=== PATIENT | female | born 1965 | race Caucasian/White ===

== ENCOUNTER → 2020-08-18 12:52 | Outpatient (CLI) | payer BC, SELFPAY ==
--- NOTE | ~2020-08-18 | CT_ITS ---
EXAMINATION:CT lung screening DATE: 08/18/2020 13:11 INDICATION: Personal history of tobacco dependence. Smoker who quit 1 year ago with 30 pack year hist ory. TECHNIQUE: Computed tomography (CT) of the chest was performed without intravenous contrast. Automate d exposure control and iterative reconstruction technique were employed. The dose-length product (DLP ) was 66.89 mGy-cm. COMPARISON: Chest CT 07/28/2019 FINDINGS: There is mild scarring at the lung apices. There is mild emphysema. There is mild atelectas is bilaterally. No pleural effusion. The heart size is normal. No pericardial effusion. There are no pathologically enlarged lymph nodes. There is no free intraperitoneal fluid. There is mild thoracic s pondylosis. IMPRESSION: 1. Lung-RADS category 2: Benign appearance or behavior. Continue annual screening with noncontrast lo w-dose chest CT in 12 months. Reviewed, dictated and finalized at location A. IMPRESSION: 1. Lung-RADS category 2: Benign appearance or behavior. Continue annual screeni ng with noncontrast low-dose chest CT in 12 months.
== END ==
PROVIDERS: PCP Family Medicine; Visit Provider Family Medicine
DX: Z12.2 Encounter for screening for malignant neoplasm of respiratory organs (principal); Z87.891 Personal history of nicotine dependence
CPT/HCPCS: G0297

== ENCOUNTER → 2020-08-31 10:59 | Outpatient (CLI) | payer BC, SELFPAY ==
--- NOTE | ~2020-08-31 | MM_ITS ---
EXAMINATION: MM screening [facility] BI w payal HISTORY: Screening TECHNIQUE: Craniocaudal and mediolateral oblique 3-D tomosynthesis images were obtained and synthetic 2-D images were generated. CAD analysis was submitted and interpreted. COMPARISON: Comparison to multiple prior studies sequentially, with oldest reviewed study dated 01/2018. BREAST PARENCHYMAL COMPOSITION: There are scattered areas of fibroglandular density.. FINDINGS: The left breast is stable without evidence for. There is developing asymmetry in the upper inner quadrant of the right breast. IMPRESSION: 1. Developing right breast asymmetry, best seen on CC view. 2. Additional mammographic views and possible breast ultrasound are recommended. BI-RADS Category 0: Incomplete: Needs additional imaging evaluation. Reviewed, dictated and finalized at location A. 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 Developing right breast asymmetry, best seen on CC view. 2. Additional mammographic views and possible breast ultrasound are recommended . BI-RADS Category 0: Incomplete: Needs additional imaging evaluation.
== END ==
PROVIDERS: PCP Family Medicine; Visit Provider Family Medicine
DX: Z12.31 Encounter for screening mammogram for malignant neoplasm of breast (principal); R92.8 Other abnormal and inconclusive findings on diagnostic imaging of breast
CPT/HCPCS: 77063; 77067

== ENCOUNTER → 2020-09-16 08:39 | Outpatient (CLI) | payer BC, SELFPAY ==
--- NOTE | ~2020-09-16 | MM_ITS ---
EXAMINATION: MM diagnostic mammo unilat RT HISTORY: Right breast asymmetry on screening mammogram TECHNIQUE: Additional 3-D tomosynthesis images of the right breast were performed and synthetic 2-D i mages were generated. CAD analysis was submitted and interpreted. COMPARISON: 08/31/2020, 07/28/2019, 06/20/2018 FINDINGS: An asymmetry in the posterior third of the slightly inner breast on the craniocaudal view h as an appearance similar to prior mammograms with spot compression. No suspicious mass, calcification , or architectural distortion are identified. IMPRESSION: 1. No mammographic evidence of malignancy. 2. Recommend routine screening mammography in one year. BI-RADS Category 2: Benign finding(s). Reviewed, dictated and finalized at location A. 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
== END ==
PROVIDERS: PCP Family Medicine; Visit Provider Family Medicine
DX: R92.8 Other abnormal and inconclusive findings on diagnostic imaging of breast (principal)
CPT/HCPCS: 77065

== ENCOUNTER → 2021-10-16 16:38 | Outpatient (CLI) | payer BC, SELFPAY ==
--- NOTE | ~2021-10-16 | MM_ITS ---
EXAMINATION: MM screening [facility] BI w payal HISTORY: Screening mammogram TECHNIQUE: Craniocaudal and mediolateral oblique 3-D tomosynthesis images were obtained and synthetic 2-D images were generated. CAD analysis was submitted and interpreted. COMPARISON: 09/16/2020, 08/31/2020, 07/28/2019 BREAST PARENCHYMAL COMPOSITION: There are scattered areas of fibroglandular density. FINDINGS: A stable asymmetry is present in the posterior third of the inner right breast on the crani ocaudal view. There is no evidence of suspicious mass, calcification, or architectural distortion to suggest malignancy in either breast. There has been no suspicious interval change. IMPRESSION: 1. No mammographic evidence of malignancy. 2. Recommend routine screening mammography in one year. BI-RADS Category 2: Benign finding(s). Reviewed, dictated and finalized at location A. 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
== END ==
PROVIDERS: PCP Family Medicine; Visit Provider Family Medicine
DX: Z12.31 Encounter for screening mammogram for malignant neoplasm of breast (principal)
CPT/HCPCS: 77063; 77067

== ENCOUNTER 2021-12-18 00:40 | Day surgery (SDC) | payer BC, SELFPAY ==
[2021-12-07 10:37] VITALS: BMI 26.9
[2021-12-18 11:54] VITALS: BP 127/81; PULSE 69; RESP 18; TEMP 36.3; O2SAT 100; BMI 28.7
[2021-12-18] MEDS: LACTATED RINGERS 1,000 ML 150 ML IV CONT (12:00)
--- NOTE | 2021-12-18 12:14 | WPDANESEPPF ---
Anes - Initial Pre Proc Eval Procedure: Operation Date: 12/18/21 13:00 Proposed Procedures p Screening Colonoscopy - Steve Hull MD Date/Time: 12/18/21 12:14 Surgeon: Steve Hull MD Pre Op Diagnosis: neoplasm screening Patient Data Age: 56 Gender: F Height: 1.7 m Weight: 83.2 kg Last Vital Signs Temp 36.3 C L 12/18/21 11:54 Pulse 69 12/18/21 11:54 Resp 18 12/18/21 11:54 BP 127/81 12/18/21 11:54 Pulse Ox 100 12/18/21 11:54 Allergies Allergy/AdvReac Type Severity Reaction Status Date / Time No Known Allergies Allergy Mild Verified 12/18/21 11:50 Home Medications Medication Instructions Recorded Confirmed Type Uri Stress Gummy 2 gummy PO DAILY 12/07/21 12/07/21 History diphenhydramine HCl [Nitetime 25 mg PO HS PRN 12/07/21 12/07/21 History Sleep Aid] [id number]-rgu-kviw-FA-lutein 1 tablet PO DAILY 12/07/21 12/07/21 History [Centrum Silver Women] sumatriptan succinate [Imitrex] 100 mg PO DAILY PRN 12/07/21 12/07/21 History Patient hx anesthesia problems: none Family hx anesthesia problems: none Results Review: All pre-operative results and documents have been reviewed as part of the pre-operative evaluation. PMFSH Past Medical History Medical History Hx of migraines Social History Social History Smoking status: Former smoker Tobacco type: cigarettes Alcohol use details: Monthly Living arrangements: with family Spiritual care concerns: No Anes - Eval Final PreProcedure Day of Procedure 12/18/21 12:14 Patient weight: overweight Heart: regular rate and rhythm Lungs: clear to auscultation Airway: Mallampati scale class II Neurological: alert and oriented Last oral intake: >/= 8 hours ASA classification: II Emergent: no Anesthetic plan: proceed Anesthesia type and monitoring: general GIVS and standard monitoring Results Review: All pre-operative results and documents have been reviewed as part of the pre-operative evaluation. Informed Consent: The patient's anesthetic plan and its attendant risks and benefits were discussed with the patient/family/POA. Questions were solicited and answers provided to the satisfaction of the patient/family/POA.
--- NOTE | 2021-12-18 12:33 | PM.HPGS ---
History of Present Illness History of Present Illness Consent: Risks, benefits, and alternatives have been discussed and questions answered. Patient agrees to proceed with procedure. Chief complaint: neoplasm screening Narrative: Sonia Linn is a 56 year old female here for screening colonoscopy, she had one but in her 20's Review of Systems Constitutional: Constitutional: Denies headache(s) and Denies weakness Eyes: Eyes: Denies blurry vision ENT: Reports Normal hearing present, Denies headache(s) and Denies neck pain Cardiovascular: Cardiovascular: Denies chest pain and Denies dyspnea Respiratory: Respiratory: Denies dyspnea Gastrointestinal: Gastrointestinal: Reports no additional gastrointestinal complaints Genitourinary: Genitourinary: Denies dysuria Musculoskeletal: Musculoskeletal: Denies neck pain Integumentary/Breasts: Skin/Breast: Denies dry skin Neurologic: Reports Normal hearing present, Denies headache(s) and Denies weakness Psychiatric: Psychiatric: Denies anxiety Endocrine: Endocrine: Denies change in body appearance Hematologic/Lymphatic: Hematologic/Lymphatic: Denies easy bleeding Allergic/Immunologic: Allergic/Immunologic: Denies urticaria PMFSH Past Medical History Medical History (Updated 12/18/21 @ 12:33 by Steve Hull MD) Colon cancer screening Hx of migraines Social History Social History Smoking status: Former smoker Tobacco type: cigarettes Alcohol use details: Monthly Living arrangements: with family Spiritual care concerns: No Meds Home Medications and Allergies Home Medications Medication Instructions Recorded Confirmed Type Uri Stress Gummy 2 gummy PO DAILY 12/07/21 12/07/21 History diphenhydramine HCl [Nitetime 25 mg PO HS PRN 12/07/21 12/07/21 History Sleep Aid] [id number]-[id number]-azgh-FA-lutein 1 tablet PO DAILY 12/07/21 12/07/21 History [Centrum Silver Women] sumatriptan succinate [Imitrex] 100 mg PO DAILY PRN 12/07/21 12/07/21 History Allergies Allergy/AdvReac Type Severity Reaction Status Date / Time No Known Allergies Allergy Mild Verified 12/18/21 11:50 Vital Signs Vital Signs - 24 hr 12/18/21 11:54 Temperature 97.3 F L Pulse Rate 69 Respiratory Rate 18 Blood Pressure 127/81 Pulse Oximetry 100 Exam Const: General: comfortable and no acute distress HENMT: General nose exam: Normal nares present Eyes: General: appearance normal, both eyes and all related structures Neck: Neck: no JVD Resp: Auscultation: clear to auscultation bilaterally Cardio: Rate: regular rate Rhythm: regular rhythm GI: Inspection: non-distended GI Palp: Yes Soft to palpation Skin: General skin exam: normal color Neuro: General: gait normal Speech: normal speech Extrem: General: normal to inspection Psych: Mental Status: mental status grossly normal Assessment and Plan Assessment and plan (1) Colon cancer screening: Code(s): Z12.11 - Encounter for screening for malignant neoplasm of colon Status: Acute Assessment and Plan: colonoscopy
[2021-12-18 12:52] VITALS: BP 117/77; PULSE 88; RESP 15; O2SAT 96
[2021-12-18 13:02] VITALS: BP 115/77; PULSE 78; RESP 24; O2SAT 96
== END 2021-12-18 13:20 | disposition home or self-care (01) ==
PROVIDERS: PCP Family Medicine; Visit Provider Internal Medicine Gastroenterology
PROC: 0DJD8ZZ Inspection of Lower Intestinal Tract, Via Natural or Artificial Opening Endoscopic (ICD-10-PCS; CPT 45378; principal; 2021-12-18 13:00)
DX: Z12.11 Encounter for screening for malignant neoplasm of colon (principal); K57.30 Diverticulosis of large intestine without perforation or abscess without bleeding; K64.8 Other hemorrhoids; Z87.891 Personal history of nicotine dependence
CPT/HCPCS: 45378; J2704; J7120

== ENCOUNTER 2022-08-04 11:27 | Emergency (ER) | payer BC, SELFPAY ==
--- NOTE | ~2022-08-04 | XR_ITS ---
XR knee RT 3V 08/04/2022 12:20 Indication: Right knee pain. Procedure: 3 views right knee Comparison: No prior studies for comparison. Findings: No fracture, subluxation or dislocation. Moderate joint effusion. No significant soft tissu e abnormality. No foreign body. Mild patellofemoral compartment osteoarthritis. Impression: 1: No acute fracture. 2: Mild patellofemoral compartment osteoarthritis. 2: Moderate knee effusion. Reviewed, dictated and finalized at location A. Impression: 1: No acute fracture. 2: Mild patellofemoral compartment osteoarthritis. 2: Moderate knee effusion.
[2022-08-04 11:38] VITALS: BP 128/90; PULSE 74; RESP 16; TEMP 36.1; O2SAT 99
--- NOTE | 2022-08-04 12:02 | ED.LOWEXIN ---
HPI - Extremity Injury (Lower) General Chief Complaint: Extremity Injury, Lower Stated Complaint: knee pain Time Seen by Provider: 08/04/22 12:02 Source: patient Mode of arrival: ambulatory Limitations: no limitations History of Present Illness HPI Narrative: 56-year-old female presented for complaint of right knee pain worsening over the past 2 weeks. She states this last week has been extremely painful, endorses more swelling and limping. Pain is worse to the inner knee and behind the knee. 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 Rates 7/10 at minimum. Endorses she had a problem with her meniscus about 2 tee ago, it was injected and reports significant improvement in pain at that time and has been tolerable for the last 2 years. She denies any new injuries or excessive use. She denies numbness, tingling, or weakness of the extremity. She is taking Aleve for pain and she purchased a knee support. Related Data Home Medications Medication Instructions Recorded Confirmed multivit with 1 tablet PO DAILY 12/07/21 12/07/21 [id number]-sfmt-NZ-lutein 8 mg iron-400 mcg-300 mcg tablet (Centrum Silver Women) sumatriptan succinate 100 mg 100 mg PO DAILY PRN Migraine 12/07/21 12/07/21 tablet (Imitrex) Headache Allergies Allergy/AdvReac Type Severity Reaction Status Date / Time No Known Allergies Allergy Mild Verified 08/04/22 11:30 Review of Systems Review of Systems: CONSTITUTIONAL: Denies body aches, fever, chills EYES: Denies visual changes CARDIOVASCULAR: Denies chest pain, palpitations, or edema. RESPIRATORY: Denies cough or dyspnea. SKIN: Denies rash, itching, or wounds. MUSCULOSKELETAL: Reports right knee pain NEUROLOGIC: Denies headache, numbness, tingling, or weakness. All systems reviewed & are unremarkable except as noted in HPI and below PMFSH Past Medical History Medical History Colon cancer screening Hx of migraines Social History Social History Smoking status: Former smoker Tobacco type: cigarettes Alcohol use details: Monthly Spiritual care concerns: No Comments At time of signature, I have reviewed and agree with nursing past medical, surgical, social and family history unless otherwise noted. Please see nursing chart for further information. There is no relevant family history pertinent to the presenting complaint Exam Narrative: GENERAL: Well-appearing CHEST: Speaks in full sentences. No respiratory distress. HEART: Regular rate and rhythm. Normal and equal peripheral pulses. EXTREMITIES: Moderate right knee swelling; limited range of motion to right knee, tender to palpation medially. RLE has normal strength and sensation, no redness or bruising. No open wounds, alignment normal, pulse palpable and equal bilaterally, skin warm, dry, pink. Capillary refill less than 3 seconds. SKIN: Warm, dry, no rash. NEURO: Alert and oriented x3. PSYCH: Normal mood and affect Course Course Emergency Course: Patient is aware of diagnosis, understands and agrees to treatment plan. Anticipatory guidance given. Patient agrees to follow-up as directed and is aware of reasons to seek care at the emergency department. Portions of this record may have been created with voice recognition software Level of Care: Express Care Visit Vital Signs Vital signs: Vital Signs Temperature 97.0 F L 08/04/22 11:38 Pulse Rate 74 08/04/22 11:38 Respiratory Rate 16 08/04/22 11:38 Blood Pressure 128/90 08/04/22 11:38 Pulse Oximetry 99 08/04/22 11:38 Oxygen Delivery Room Air 08/04/22 11:38 Temperature 97.0 F L 08/04/22 11:38 Pulse Rate 74 08/04/22 11:38 Respiratory Rate 16 08/04/22 11:38 Blood Pressure 128/90 08/04/22 11:38 Pulse Oximetry 99 08/04/22 11:38 Oxygen Delivery Room Air 08/04/22 11:38 Reviewed MDM - Extremity Injury
== END 2022-08-04 12:43 | disposition home or self-care (01) ==
PROVIDERS: Emergency Provider Nurse Practitioner Family
DX: M25.561 Pain in right knee (principal); Z87.891 Personal history of nicotine dependence; Z86.16 Personal history of COVID-19
CPT/HCPCS: 73562; 99213; G0463

== ENCOUNTER → 2022-11-14 08:36 | Outpatient (CLI) | payer BC, SELFPAY ==
--- NOTE | ~2022-11-14 | CT_ITS ---
EXAMINATION: CT lung screening DATE: 11/14/2022 08:57 INDICATION: Tobacco use. Lung cancer screening. TECHNIQUE: Computed tomography (CT) of the chest was performed without intravenous contrast. Automate d exposure control and iterative reconstruction technique were employed. Exam dose: 69.69 mGy-cm tot al exam DLP. COMPARISON: 08/18/2020 CT lung screening FINDINGS: Mild emphysema and mild apical scarring. Again noted. No pulmonary infiltrate or consolidat ion or pulmonary mass lesion. No hilar or mediastinal mass lesion or lymphadenopathy. Normal heart size. No pericardial or pleural effusion. Small sliding hiatal hernia. Normal morphology of the adrenal glands. Included skeletal structures are unremarkable; no suspicious osteolytic or osteoblastic lesions. IMPRESSION: BI-RADS Category 2: Benign appearance or behavior. Continue annual screening with noncon trast low-dose CT chest in 12 months Reviewed, dictated and finalized at Location A. Reviewed, dictated and finalized at location B. 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 Continue annual screening with noncontrast low-dose CT chest in 12 months
== END ==
PROVIDERS: PCP Family Medicine; Visit Provider Family Medicine
DX: Z12.2 Encounter for screening for malignant neoplasm of respiratory organs (principal); Z87.891 Personal history of nicotine dependence
CPT/HCPCS: 71271

== ENCOUNTER → 2023-03-15 15:30 | Outpatient (CLI) | payer BC, SELFPAY ==
--- NOTE | ~2023-03-15 | MM_ITS ---
EXAMINATION: MM screening [facility] BI w payal HISTORY: Screening mammogram TECHNIQUE: Craniocaudal and mediolateral oblique 3-D tomosynthesis images were obtained and synthetic 2-D images were generated. CAD analysis was submitted and interpreted. COMPARISON: 10/16/2021, 09/16/2020, 08/31/2020 BREAST PARENCHYMAL COMPOSITION: There are scattered areas of fibroglandular density. FINDINGS: Again seen is a stable asymmetry in the posterior third of inner right breast on the cranio caudal view. No suspicious mass, calcification, or architectural distortion are identified in either breast to suggest malignancy. There has been no suspicious interval change. IMPRESSION: 1. No mammographic evidence of malignancy. 2. Recommend routine screening mammography in one year. BI-RADS Category 2: Benign finding(s). Reviewed, dictated and finalized at location A.
== END ==
PROVIDERS: PCP Family Medicine; Visit Provider Family Medicine
DX: Z12.31 Encounter for screening mammogram for malignant neoplasm of breast (principal)
CPT/HCPCS: 77063; 77067

== ENCOUNTER 2023-09-04 08:47 | Outpatient (CLI) | payer BC, SELFPAY ==
[2023-09-04 09:41] LABS: Basophils Absolute Auto 0.1 K/mm3 (0.0-0.1); Basophils Percent Auto 0.8 % (0.2-1.2); Eosinophils Absolute Auto 0.4 K/mm3 (0-0.3); Eosinophils Percent Auto 4.8 % (0-4.4); Hematocrit 42.1 % (37.0-47.0); Hemoglobin 13.7 g/dL (12.0-15.0); Immature Granulocyte Absolute 0.04 K/mm3 (0.00-0.031); Immature Granulocyte Percent A 0.5 % (0-0.5); Lymphocytes Absolute Auto 2.65 K/mm3 (0.9-3.2); Lymphocytes Percent Auto 33.2 % (18.3-44.2); Mean Corpuscular HGB Conc 32.5 g/dl (32-36); Mean Corpuscular Hemoglobin 29.8 pg (26-34); Mean Corpuscular Volume 91.7 fl (80-100); Mean Platelet Volume 9.5 fl (7.4-10.4); Monocytes Absolute Auto 0.5 K/mm3 (0.1-0.6); Monocytes Percent Auto 6.6 % (2.6-8.5); Neutrophils Absolute Auto 4.3 K/mm3 (1.3-6.7); Neutrophils Percent Auto 54.1 % (45.5-73.1); Platelet Count Result 317 k/mm3 (150-375); Red Blood Count 4.59 M/mm3 (4.2-5.4)
[2023-09-04 09:54] LABS: Alanine Aminotransferase 18 U/L (6-35); Albumin Level 4.4 g/dL (3.5-5.1); Alkaline Phosphatase 67 U/L (38-126); Anion Gap 6 mmol/L (8-16); Aspartate Amino Transferase 21 U/L (14-36); Bilirubin,Total 0.6 mg/dL (0.2-1.3); Blood Urea Nitrogen 17 mg/dL (7-17); Calcium 9.4 mg/dL (8.4-10.2); Carbon Dioxide 28 mmol/L (22-30); Chloride 106 mmol/L (98-107); Estimated Glomerular Filt Rate > 60; Glucose 99 mg/dL (65-110); Sodium 140 mmol/L (137-145)
== END 2023-09-04 08:48 | disposition home or self-care (01) ==
LOC: ANHLAB 08:50
PROVIDERS: PCP Family Medicine; Visit Provider Physician Assistant Surgical
DX: M17.11 Unilateral primary osteoarthritis, right knee (principal); Z79.1 Long term (current) use of non-steroidal anti-inflammatories (NSAID)
CPT/HCPCS: 36415; 80053; 85025

== ENCOUNTER 2024-02-12 08:38 | Outpatient (CLI) | payer BC, SELFPAY ==
--- NOTE | ~2024-02-12 | CT_ITS ---
EXAMINATION: CT lung screening DATE: 02/12/2024 08:50 INDICATION: TOBACCO USE TECHNIQUE: Computed tomography (CT) of the chest was performed without intravenous contrast. Addition al 3D reconstructions utilizing coronal maximum intensity projection (MIP) were performed. Automated exposure control and iterative reconstruction technique were employed. The dose-length product was 69 .23 mGy-cm. COMPARISON: 11/14/2022 FINDINGS: Mild emphysema. Minimal dependent atelectasis in bilateral lower lobes. No suspicious pulmonary nodul es, pneumonia or, pulmonary edema or other pulmonary infiltrates. No pleural effusion or pneumothorax . Heart size is normal. No pericardial effusion. Thoracic aorta is normal in caliber. No pathological ly enlarged thoracic lymphadenopathy. Chronic appearing mild likely physiologic anterior wedging at T 12. Mild to moderate thoracic spondylosis. IMPRESSION: 1. Lung-RADS category 1: Negative. Continue annual screening with noncontrast low-dose chest CT in 12 months. Reviewed, dictated and finalized at location A. IMPRESSION: 1. Lung-RADS category 1: Negative. Continue annual screening with noncontrast l ow-dose chest CT in 12 months.
== END 2024-02-12 08:39 ==
LOC: MICIMG 08:39
PROVIDERS: PCP Family Medicine; Visit Provider Family Medicine
DX: Z12.2 Encounter for screening for malignant neoplasm of respiratory organs (principal); Z87.891 Personal history of nicotine dependence
CPT/HCPCS: 71271

== ENCOUNTER 2024-07-30 15:02 | Outpatient (CLI) | payer BC, SELFPAY ==
--- NOTE | ~2024-07-30 | MM_ITS ---
EXAMINATION: MM screening [facility] BI w payal HISTORY: Screening TECHNIQUE: Craniocaudal and mediolateral oblique 3-D tomosynthesis images were obtained and synthetic 2-D images were generated. CAD analysis was submitted and interpreted. COMPARISON: Comparison to multiple prior studies sequentially, with oldest reviewed study dated 06/20. BREAST PARENCHYMAL COMPOSITION: Not dense: There are scattered areas of fibroglandular density. FINDINGS: There is no evidence of suspicious mass, calcification, or architectural distortion to sugg est malignancy in either breast. There has been no suspicious interval change. IMPRESSION: 1. No mammographic evidence of malignancy. 2. Recommend routine screening mammography in one year. BI-RADS Category 1: Negative Reviewed, dictated and finalized at location B.
== END 2024-07-30 15:03 | disposition home or self-care (01) ==
LOC: MICIMG 15:05
PROVIDERS: PCP Nurse Practitioner Family; Visit Provider Nurse Practitioner Family
DX: Z12.31 Encounter for screening mammogram for malignant neoplasm of breast (principal)
CPT/HCPCS: 77063; 77067